=== PATIENT | male | born 1960 | race Caucasian/White ===

== ENCOUNTER → 2017-03-21 | Outpatient (CLI) | payer BC ==
[~2017-03-21] MED LIST: LRT5 PO
[2017-03-21 10:41] LABS: BASO % 0.2 %; BASO ABS # 0.01 K/uL (0-0.2); COMPLETE YES; EOS % 2.7 %; HEMATOCRIT 43.8 % (42-52); IG% 0.3 %; LYMPH % 41.2 %; MEAN CELL VOLUME 84.9 fL (80-100); MEAN CORPUSCULAR HEMOGLOBIN 30.6 pg (25-34); MEAN CORPUSCULAR HGB CONC 36.1 g/dl (32-36); MEAN PLATELET VOLUME 11.2 fL (7.4-10.4); MONO % 7.8 %; NEUT % 47.8 %; PLATELET COUNT 179 K/uL (130-400); RED BLOOD COUNT 5.16 M/uL (4.7-6.1); WHITE BLOOD COUNT 6.55 K/uL (4.8-10.8)
[2017-03-21 11:01] LABS: ALT/SGPT 77 U/L (12-78); BLOOD UREA NITROGEN 19 mg/dl (7-18); BUN/CREATININE RATIO 19.4 (10-20); CALCIUM 8.7 mg/dl (8.5-10.1); CARBON DIOXIDE 28 mmol/L (21-32); CHLORIDE 107 mmol/L (98-107); GLUCOSE 103 mg/dl (70-99); POTASSIUM 4.4 mmol/L (3.5-5.1); SODIUM 140 mmol/L (136-145)
[2017-03-21 11:12] LABS: ALKALINE PHOSPHATASE 82 U/L (45-117); AST/SGOT 36 U/L (15-37); CHOLESTEROL 160 mg/dl (0-200); CHOLESTEROL/HDL RATIO 4.6; HDL CHOLESTEROL 35 mg/dl; LDL CHOLESTEROL CALCULATED 92 mg/dl; TRIGLYCERIDES 163 mg/dl (0-150); VERY LOW DENSITY LIPOPROT CALC 33 mg/dl
== END | disposition home or self-care (01) ==
LOC: C.LABBC 07:46
PROVIDERS: ATTEND Internal Medicine
DX: Z00.00 Encounter for general adult medical examination without abnormal findings (principal)

== ENCOUNTER → 2017-10-26 | Outpatient (CLI) | payer BC ==
--- NOTE | 2017-11-03 09:00 | POLYSOMNOGRAPH REPORT ---
SLEEP STUDY REPORT CLINICAL DATA: The patient is a 56-year-old male with a history of snoring, disturbed nocturnal sleep, and daytime tiredness. His BMI is elevated at 34.55. He was referred by Dr. Lombardo. On the evening of 10/26/2017, a home sleep apnea test was performed using the [employer] type 3 monitor. RECORDING RESULTS: The total recording time was 8.9 hours. The patient's estimated sleep time was 6.9 hours. RESPIRATORY DATA: The patient had a total of 32 respiratory events including 7 obstructive apneas, 1 mixed apnea, 4 central apneas, and 20 hypopneas. Hypopneas were scored according to the 4% desaturation rule. The CHANDRAKANT was 4.6 events per hour. The maximal respiratory event was 33 seconds. OXIMETRY DATA: The mean saturation for the night was 93%. The minimum saturation was 86%. The patient had a total of 5 minutes less than 89%. HEART RATE DATA: The minimum heart rate was 35 beats per minute. The mean heart rate was 50 beats per minute. SNORING DATA: Snoring was present throughout the test. IMPRESSION: 1. Primary snoring. 2. Bradycardia. COMMENTS: The patient's CHANDRAKANT was 4.6, which would be at the upper limits of normal. It should be noted that home sleep studies may underestimate the amount of sleep apnea. This level typically does not qualify the patient for treatment from an insurance perspective. Consideration could be given to a repeat with an in-lab polysomnography if clinical symptoms strongly suggest sleep apnea. RECOMMENDATIONS: 1. Consideration is given to an in-lab polysomnography if patient has persistent symptoms suggesting sleep apnea. 2. Weight loss is advised in light of the elevation of body mass index of 34.55. 3. It is suggested that the patient avoid sleeping in the supine position.
== END | disposition home or self-care (01) ==
LOC: C.NEUR 14:35
PROVIDERS: ATTEND Internal Medicine Pulmonary Disease
DX: G47.33 Obstructive sleep apnea (adult) (pediatric) (principal)